=== PATIENT | female | born 1945 | race American Indian/Alaskan Native ===

== ENCOUNTER 2018-05-13 19:23 | Emergency (ER) | payer MEDICARE, MEDICAID ==
[2018-05-13 19:41] VITALS: TEMP 98.6
--- NOTE | 2018-05-13 19:51 | ED PDOC ---
Arrival/HPI - General Chief Complaint: Psychiatric Evaluation Time Seen by Provider: 05/13/18 19:49 Historian: Patient, [facility] EM Caveat: Dementia - History of Present Illness Narrative History of Present Illness (Text): 05/13/18 19:50 Patient is a 73 year old female whose past medical history includes UTI, and dementia with behavioral disturbances, who was brought to the Emergency department by her long term for hallucination, paranoia, and agitation. Patient currently denies any suicidal ideation, but jokingly noted that she wants kill her ex . She denies any audio or visual hallucination, and has no physical complaints. Patient states that she doesn't know why she was brought to the Emergency department. HPI and ROS limited due to patient's dementia. Context: Home (group home) Past Medical History - Provider Review Nursing Documentation Reviewed: Yes - Cardiac Hx Cardiac Disorders: No - Pulmonary Hx Respiratory Disorders: No - Neurological Hx Neurological Disorder: Yes Hx Dementia: Yes - HEENT Hx HEENT Disorder: No - Renal Hx Renal Disorder: No - Endocrine/Metabolic Hx Endocrine Disorders: No - Hematological/Oncological Hx Blood Disorders: No - Integumentary Hx Dermatological Disorder: No - Musculoskeletal/Rheumatological Hx Musculoskeletal Disorders: Yes Hx Unsteady Gait: Yes - Gastrointestinal Hx Gastrointestinal Disorders: No - Genitourinary/Gynecological Hx Genitourinary Disorders: Yes Hx Incontinence: Yes Hx Urinary Tract Infection: Yes - Psychiatric Hx Psychophysiologic Disorder: Yes Hx Substance Use: No Other/Comment: BEHAVIORAL DISTURBANCE Family/Social History - Physician Review Nursing Documentation Reviewed: Yes Family/Social History: No Known Family HX Smoking Status: Unknown If Ever Smoked Hx Alcohol Use: No Hx Substance Use: No Allergies/Home Meds Allergies/Adverse Reactions: Allergies Penicillins Allergy (Verified 05/13/18 19:29) SHORTNESS OF BREATH Home Medications: Home Meds Medication Instructions Recorded Confirmed Acetaminophen [Tylenol 325mg tab] 650 mg PO Q4 PRN 05/13/18 05/13/18 Magnesium Hydroxide [Milk Of 30 ml PO PRN PRN 05/13/18 05/13/18 Magnesia] Review of Systems - Review of Systems Systems not reviewed;Unavailable: Dementia Psychiatric: absent: Suicidal Ideation, Other (patient denies auditory or visual hallucination.) Physical Exam Vital Signs Reviewed: Yes Vital Signs Temp Pulse Resp BP Pulse Ox 05/13/18 19:31 98.6 F 86 16 121/76 100 Temperature: Afebrile Blood Pressure: Normal Pulse: Regular Respiratory Rate: Normal Appearance: Positive for: Well-Appearing - Systems Exam Head: Present: Atraumatic, Normocephalic Pupils: Present: PERRL Extroacular Muscles: Present: EOMI Conjunctiva: Present: Normal Mouth: Present: Moist Mucous Membranes Neck: Present: Normal Range of Motion Respiratory/Chest: Present: Clear to Auscultation, Good Air Exchange. No: Respiratory Distress, Accessory Muscle Use Cardiovascular: Present: Regular Rate and Rhythm, Murmurs (systolic murmur) Abdomen: No: Tenderness, Distention, Peritoneal Signs Back: Present: Normal Inspection Upper Extremity: Present: Normal Inspection. No: Cyanosis, Edema Lower Extremity: Present: Normal Inspection. No: Edema Neurological: Present: GCS=15, CN II-XII Intact, Speech Normal Skin: Present: Warm, Dry, Normal Color. No: Rashes Psychiatric: Present: Alert, Other (tangential thoughts and focus. ). No: Suicidal Ideation Medical Decision Making ED Course and Treatment: 05/13/18 19:50 Impression: 73 year old female who was brought into the Emergency department from the long term for hallucination, paranoia, and agitation. Plan: -- EKG -- labs -- Blood work -- AES crisis evaluation -- Urinalysis -- Reassess and disposition Prior Visits: Notes and results from previous visits were reviewed. Progress Notes: 05/13/18 20:32 [facility] called and stated they will come in to evaluate patient pending medical clearance. 05/13/18 21:09 PES worker discussed case with Dr. Melissa, and states patient can be discharged home. Patient does not live in long term, but goes there for rehab, lives at home with son. PES worker also spoke to the patient's son, who is her POA, and says he is fine with her to come home, and will bring her clothes and come get her. 05/13/18 21:10 EKG: Ordered, reviewed, and independently interpreted the EKG. Rate : 83 BPM Rhythm : NSR Interpretation : No ST-segment elevations or depressions, nonspecific T wave changes, normal intervals. 05/13/18 21:[address] Orr and he is accepting patient. - Scribe Statement The provider has reviewed the documentation as recorded by the Nuzhatibe Chay Reidjaeanna Provider Scribe Attestation: All medical record entries made by the Nuzhatibe were at my direction and personally dictated by me. I have reviewed the chart and agree that the record accurately reflects my personal performance of the history, physical exam, me dical decision making, and the department course for this patient. I have also personally directed, reviewed, and agree with the discharge instructions and disposition. Disposition/Present on Arrival - Present on Arrival History of DVT/PE: No History of Uncontrolled Diabetes: No Urinary Catheter: No History of Decub. Ulcer: No History Surgical Site Infection Following: None - Disposition Have Diagnosis and Disposition been Completed?: Yes Diagnosis: Dementia, Hypokalemia, Hyperglycemia Disposition: HOME/ ROUTINE Disposition Time: 21:05 Patient Plan: Discharge Patient Problems: Current Active Problems Problem Status Onset Dementia Acute Hyperglycemia Acute Hypokalemia Acute Condition: STABLE Discharge Instructions (ExitCare): Dementia (Including Alzheimer Disease), Hyperglycemia, Adult (DC) Referrals: Josh Reveles, [Primary Care Provider] - Follow up with primary Forms: [place] ([place]ian)
[2018-05-13 20:38] LABS: ACETAMINOPHEN < 10.0 ug/ml (10.0-20.0); SALICYLATE < 1 mg/dL (2.0-20.0)
[2018-05-13 20:42] LABS: BASO # 0.02 K/mm3 (0.0-2.0); BASO % 0.3 % (0.0-3.0); EOS # 0.2 (0.0-0.7); EOS % 2.8 % (1.5-5.0); GRAN # 4.87 (1.4-6.5); GRAN % 62.9 % (50.0-68.0); HEMOGLOBIN 11.5 g/dL (12.0-16.0); LYMPH # 2.1 (1.2-3.4); LYMPH % 26.5 % (22.0-35.0); MEAN CELL VOLUME 89.3 fl (80.0-105.0); MEAN CORPUSCULAR HEMOGLOBIN 27.9 pg (25.0-35.0); MEAN CORPUSCULAR HGB CONC 31.3 g/dl (31.0-37.0); MEAN PLATELET VOLUME 9.8 fl (7.0-11.0); MONO # 0.6 (0.1-0.6); MONO % 7.5 % (1.0-6.0); RBC 4.12 10^6/uL (3.5-6.1); RED CELL DISTRIBUTION WIDTH 13.7 % (11.5-14.5); WHITE BLOOD COUNT 7.7 10^3/ul (4.5-11.0)
[2018-05-13 20:54] LABS: ALB/GLOB RATIO 1.4 (1.1-1.8); ALBUMIN 3.5 g/dL (3.0-4.8); ALT/SGPT 18 U/L (7-56); AST/SGOT 17 U/L (14-36); BLOOD UREA NITROGEN 22 mg/dL (7-21); CALCIUM 9.9 mg/dL (8.4-10.5); GFR NON-AFRICAN AMERICAN > 60
[2018-05-13] MEDS: Potassium Chloride 20 mEq ER Tab PO STA ×2 (21:58→22:45)
[2018-05-13 22:54] VITALS: BP 122/78; PULSE 90; RESP 18; O2SAT 99
--- NOTE | 2018-05-14 09:20 | CARD ---
APPROVED REPORT Date of service: 05/13/2018 EKG Measurement Heart [id number] [id number] <Conclusion> Normal sinus rhythm Moderate voltage criteria for LVH, may be normal variant Borderline ECG
== END 2018-05-13 22:53 | disposition home or self-care (01) ==
LOC: ED 19:23
DX: F03.90 Unspecified dementia, unspecified severity, without behavioral disturbance, psychotic disturbance, mood disturbance, and anxiety (principal); R73.9 Hyperglycemia, unspecified; E87.6 Hypokalemia
CPT/HCPCS: 80053; 83735; 85025; 90791; 93005; 99282; G0480

== ENCOUNTER 2018-09-24 02:01 | Inpatient (IN) | payer MEDICARE, MEDICAID ==
[2018-09-24 02:08] VITALS: BMI 31.3
--- NOTE | 2018-09-24 02:28 | ED PDOC ---
Arrival/HPI - General Chief Complaint: Weakness/Neurological Deficit Time Seen by Provider: 09/24/18 02:13 Historian: Patient - History of Present Illness Narrative History of Present Illness (Text): 09/24/18 02:25 73 year old female, whose past medical history includes dementia, presented to the emergency department by EMS accompanied by son, for evaluation of generalized weakness. Patient's son also informs she has been having increasing confusion. Patient states she has been unsteady on feet with difficulty ambulating. Patient denies any history of fever, chest pain, or shortness of breath. Patient appears animated at times raising her voice to her son and stating that she feels fine. Patient denies any headache, dizziness, abdominal pain, nausea, vomiting, diarrhea, back pain, neck pain, or any other complaint. Time/Duration: Prior to Arrival Symptom Onset: Gradual Symptom Course: Unchanged Activities at Onset: Light Context: Home Past Medical History - Provider Review Nursing Documentation Reviewed: Yes - Cardiac Hx Cardiac Disorders: No - Pulmonary Hx Respiratory Disorders: No - Neurological Hx Neurological Disorder: Yes Hx Dementia: Yes - HEENT Hx HEENT Disorder: No - Renal Hx Renal Disorder: No - Endocrine/Metabolic Hx Endocrine Disorders: No - Hematological/Oncological Hx Blood Disorders: No - Integumentary Hx Dermatological Disorder: No - Musculoskeletal/Rheumatological Hx Musculoskeletal Disorders: Yes Hx Unsteady Gait: Yes - Gastrointestinal Hx Gastrointestinal Disorders: No - Genitourinary/Gynecological Hx Genitourinary Disorders: Yes Hx Incontinence: Yes Hx Urinary Tract Infection: Yes - Psychiatric Hx Psychophysiologic Disorder: Yes Hx Substance Use: No Other/Comment: BEHAVIORAL DISTURBANCE Family/Social History - Physician Review Nursing Documentation Reviewed: Yes Family/Social History: No Known Family HX Smoking Status: Unknown If Ever Smoked Hx Alcohol Use: No Hx Substance Use: No Allergies/Home Meds Allergies/Adverse Reactions: Allergies Penicillins Allergy (Verified 09/24/18 02:09) SHORTNESS OF BREATH Home Medications: Home Meds Medication Instructions Recorded Confirmed No Known Home Med 09/24/18 09/24/18 Review of Systems - Physician Review All systems were reviewed & negative as marked: Yes - Review of Systems Constitutional: Fatigue. absent: Fevers, Night Sweats Respiratory: absent: SOB Cardiovascular: absent: Chest Pain Gastrointestinal: absent: Abdominal Pain, Diarrhea, Nausea, Vomiting Musculoskeletal: absent: Back Pain, Neck Pain Neurological: absent: Headache, Dizziness Physical Exam Vital Signs Reviewed: Yes Vital Signs Temp Pulse Resp BP 09/24/18 02:21 97.9 F 106 H 18 134/74 Temperature: Afebrile Blood Pressure: Normal Pulse: Tachycardic Respiratory Rate: Normal Appearance: Positive for: Well-Appearing, Non-Toxic, Comfortable Pain Distress: None - Systems Exam Head: Present: Atraumatic, Normocephalic Pupils: Present: PERRL Extroacular Muscles: Present: EOMI Conjunctiva: Present: Normal Ears: Present: NORMAL TM Mouth: Present: Moist Mucous Membranes Neck: Present: Normal Range of Motion Respiratory/Chest: Present: Clear to Auscultation, Good Air Exchange. No: Respiratory Distress, Accessory Muscle Use Cardiovascular: Present: Regular Rate and Rhythm, Normal S1, S2. No: Murmurs Abdomen: No: Tenderness, Distention, Peritoneal Signs Back: Present: Normal Inspection Upper Extremity: Present: Normal Inspection. No: Cyanosis, Edema Lower Extremity: Present: Normal Inspection. No: Edema Neurological: Present: GCS=15, CN II-XII Intact, Speech Normal, Motor Func Grossly Intact, Normal Sensory Function Skin: Present: Warm, Dry, Normal Color. No: Rashes Psychiatric: Present: Alert, Other (oriented to person/place) Medical Decision Making ED Course and Treatment: 09/24/18 02:30 Impression: 73 year old female presents with generalized weakness Plan: -- CT Head -- EKG -- CMP -- CBC -- Chest X-ray -- Urinalysis -- Reassess and disposition Prior Visits: Notes and results from previous visits were reviewed. Progress Notes: 09/24/18 02:45 EKG reviewed by me shows: NSR @95 Non specific STT changes 09/24/18 03:00 Chest X-ray reviewed by me, shows: No acute process 09/24/18 04:20 CT scan of the head. CLINICAL HISTORY: Altered mental status. TECHNIQUE: Multiple axial CT images were obtained through the brain without IV contrast material. Comparison: 04/16/2018. COMMENTS: There is normal configuration of sella turcica. There are no intra or extra- axial collections. There is no mass effect or midline shift. There is no evidence of hematoma formation. No hydrocephalus is present. The ventricles are symmetrical. No abnormal calcifications are present. There is diffuse age-appropriate cerebellar and cerebral atrophy with proportionally dilated ventricles and cortical sulci. There are bilateral periventricular and subcortical white matter hypolucencies compatible with mild chronic microvascular disease. Otherwise, no significant focal abnormalities are seen either in the posterior fossa or supratentorial compartment. Mild chronic mucosal inflammatory changes of the ethmoid air cells. IMPRESSION: 1. Age-appropriate cerebellar and cerebral atrophy. 2. Mild chronic microvascular disease. 3. No evidence of acute intracranial pathology. 09/24/18 05:56 Dr Reveles accepts patient to his service. Would like Dr Peterson on consult - RAD Interpretation Radiology Orders: 09/24/18 02:23 HEAD W/O CONTRAST [CT] Stat 09/24/18 02:24 CHEST PORTABLE [RAD] Stat - Scribe Statement The provider has reviewed the documentation as recorded by the Scribe Brennon Arevalo Provider Scribe Attestation: All medical record entries made by the Scribe were at my direction and perso ashwini dictated by me. I have reviewed the chart and agree that the record accurately reflects my personal performance of the history, physical exam, medical decision making, and the department course for this patient. I have also personally directed, reviewed, and agree with the discharge instructions and disposition. Disposition/Present on Arrival - Present on Arrival Any Indicators Present on Arrival: No History of DVT/PE: No History of Uncontrolled Diabetes: No Urinary Catheter: No History of Decub. Ulcer: No History Surgical Site Infection Following: None - Disposition Have Diagnosis and Disposition been Completed?: Yes Diagnosis: Altered mental status, Dehydration, Unsteady gait Disposition: HOSPITALIZED Disposition Time: 05:58 Patient Problems: Current Active Problems Problem Status Onset Altered mental status Acute Dehydration Acute Unsteady gait Acute Condition: STABLE
[2018-09-24 03:08] LABS: HEMOGLOBIN 11.2 g/dL (12.0-16.0); MEAN CELL VOLUME 89.7 fl (80.0-105.0); MEAN CORPUSCULAR HEMOGLOBIN 28.2 pg (25.0-35.0); MEAN CORPUSCULAR HGB CONC 31.5 g/dl (31.0-37.0); RBC 3.97 10^6/uL (3.5-6.1); RED CELL DISTRIBUTION WIDTH 13.2 % (11.5-14.5); WHITE BLOOD COUNT 11.4 10^3/uL (4.5-11.0)
[2018-09-24 03:10] LABS: ALBUMIN 3.4 g/dL (3.0-4.8); ALT/SGPT 22 U/L (7-56); AST/SGOT 31 U/L (14-36); BLOOD UREA NITROGEN 41 mg/dL (7-21); CALCIUM 10.4 mg/dL (8.4-10.5); GFR NON-AFRICAN AMERICAN 44
[2018-09-24 03:11] LABS: INR 1.3; PARTIAL THROMBOPLASTIN TIME 25.9 Seconds (26.9-38.3); PROTHROMBIN TIME 14.4 SECONDS (9.4-12.5)
[2018-09-24 03:21] LABS: TROPONIN I < 0.01 ng/mL
[2018-09-24 03:28] LABS: CK MB% 1.8 % (2.5-3.0); CK-MB 5.3 ng/mL (0.0-3.6)
[2018-09-24] MEDS ORDERED: Potassium Chloride 20 mEq ER Tab PO STA (04:32)
[2018-09-24] MEDS ORDERED: Sodium Chloride 0.9% 1,000 ML IV SCH (04:45)
[2018-09-24 05:19] LABS: URINE BILIRUBIN NEGATIVE (NEGATIVE); URINE BLOOD NEGATIVE (NEGATIVE); URINE GLUCOSE (UA) NEGATIVE (NEGATIVE); URINE LEUKOCYTE ESTERASE SMALL Leu/uL (NEGATIVE); URINE PROTEIN NEGATIVE mg/dL (<30 mg/dL)
[2018-09-24 05:25] LABS: URINE APPEARANCE CLEAR (CLEAR); URINE COLOR YELLOW (YELLOW)
[2018-09-24 05:37] LABS: URINE BACTERIA MANY /hpf; URINE EPITHELIAL CELLS 0 - 2 /hpf (0-5); URINE RBC 0 - 2 /hpf (0-2)
--- NOTE | 2018-09-24 08:50 | CT ---
Date of service: 09/24/2018 PROCEDURE: CT HEAD WITHOUT CONTRAST. HISTORY: ams COMPARISON: None available. TECHNIQUE: Axial computed tomography images were obtained through the head/brain without intravenous contrast. Radiation dose: Total exam DLP = 994.46 mGy-cm. This CT exam was performed using one or more of the following dose reduction techniques: Automated exposure control, adjustment of the mA and/or kV according to patient size, and/or use of iterative reconstruction technique. FINDINGS: HEMORRHAGE: No intracranial hemorrhage. BRAIN: Ramirez-white matter differentiation is preserved. There is no mass, mass effect or abnormal extra-axial fluid collection. There is no territorial infarction. The midline sagittal structures are normal. VENTRICLES: There is mild age-related global parenchymal volume loss and proportionate enlargement of the ventricles and cortical sulci with parietal lobe predominance. CALVARIUM: There is no calvarial fracture or extracranial soft tissue swelling. There is hyperostosis frontalis interna. PARANASAL SINUSES: Predominantly clear. MASTOID AIR CELLS: Predominantly clear. OTHER FINDINGS: None. IMPRESSION: No acute intracranial abnormality. Mild age-related global parenchymal loss with parietal lobe predominance. A preliminary report was provided by [employer].
--- NOTE | 2018-09-24 11:38 | CARD ---
APPROVED REPORT Date of service: 09/24/2018 EKG Measurement Heart [id number] [id number] <Conclusion> Normal sinus rhythm Possible Left atrial enlargement Borderline ECG
[2018-09-24] MEDS: Aztreonam 1 Gm in NS 100mL 100 ML IVPB SCH ×3 (11:46→21:36)
[2018-09-24] MEDS: Sodium Chloride 0.9% 1,000 ML IV SCH (11:46)
[2018-09-24] MEDS ORDERED: Pneumococcal 23-Valent Vaccine IM ONE (12:52)
[2018-09-24] MEDS ORDERED: Influenza Vaccine 60 mcg/0.5 mL SYR (4YR UP) IM ONE (12:52)
--- NOTE | 2018-09-24 13:35 | RAD ---
Date of service: 09/24/2018 PROCEDURE: CHEST RADIOGRAPH, 1 VIEW HISTORY: weakness COMPARISON: 04/16/2018 FINDINGS: LUNGS: Clear. PLEURA: Elevated right hemidiaphragm. No pleural effusion or pneumothorax. CARDIOVASCULAR: No aortic atherosclerotic calcification present. Normal. OSSEOUS STRUCTURES: No significant abnormalities. VISUALIZED UPPER ABDOMEN: Normal. OTHER FINDINGS: None. IMPRESSION: No active disease.
--- NOTE | 2018-09-24 15:21 | CP.PCM.CON ---
History of Present Illness - History of Present Illness History of Present Illness: 73 year old female with PMH of dementia, urinary incontinence, history of UTI, obesity with BMI 31 was brought in to [facility] by family because of generalized weakness and increasing confusion. The patient was apparently noted to be unsteady on her feet. There was no note of falls, no diarrhea, no cough, patient not in respiratory distress in the ED, no vomiting noted. Currently the patient is lying in bed, answers simple questions, is not in distress, denies abdominal pain or chest pain but full review of systems is difficult to obtain because of the patient's dementia. In the ED, urinalysis was showing many bacteria and Infectious Diseases consult is requested to further evaluate and manage. Review of Systems - Review of Systems All systems: reviewed and no additional remarkable complaints except (as per HPI) Past Patient History - Past Social History Smoking Status: Unknown If Ever Smoked - CARDIAC Hx Cardiac Disorders: No - PULMONARY Hx Respiratory Disorders: No - NEUROLOGICAL Hx Neurological Disorder: Yes Hx Dementia: Yes - HEENT Hx HEENT Problems: No - RENAL Other/Comment: incontinence, UTI - ENDOCRINE/METABOLIC Hx Endocrine Disorders: No - HEMATOLOGICAL/ONCOLOGICAL Hx Blood Disorders: No - INTEGUMENTARY Hx Dermatological Problems: No - MUSCULOSKELETAL/RHEUMATOLOGICAL Hx Unsteady Gait: Yes - GASTROINTESTINAL Hx Gastrointestinal Disorders: No - GENITOURINARY/GYNECOLOGICAL Hx Incontinence: Yes Hx Urinary Tract Infection: Yes - PSYCHIATRIC Hx Psychophysiologic Disorder: No - SURGICAL HISTORY Hx Surgeries: No Meds Allergies/Adverse Reactions: Allergies Allergy/AdvReac Type Severity Reaction Status Date / Time Penicillins Allergy SHORTNESS Verified 09/24/18 02:09 OF BREATH - Medications Medications: Current Medications Sodium Chloride (Sodium Chloride 0.9%) 1,000 mls @ 60 mls/hr IV .[id number] PANCHO Physical Exam - Constitutional Appears: Non-toxic, Chronically Ill - Head Exam Head Exam: NORMAL INSPECTION - ENT Exam ENT Exam: Mucous Membranes Moist - Neck Exam Neck exam: Negative for: Lymphadenopathy, Meningismus - Respiratory Exam Respiratory Exam: Decreased Breath Sounds - Cardiovascular Exam Cardiovascular Exam: +S1, +S2 - GI/Abdominal Exam GI & Abdominal Exam: Soft. absent: Tenderness Results - Vital Signs Recent Vital Signs: Last Vital Signs Temp 97.9 F 09/24/18 02:21 Pulse 91 H 09/24/18 06:53 Resp 18 09/24/18 06:53 BP 124/72 09/24/18 06:53 Pulse Ox 100 09/24/18 06:53 - Labs Result Diagrams: 09/24/18 02:45 09/24/18 02:45 Labs: Laboratory Results - last 24 hr 09/24/18 09/24/18 09/24/18 02:45 02:45 02:45 WBC 11.4 H RBC 3.97 Hgb 11.2 L Hct 35.6 L MCV 89.7 MCH 28.2 MCHC 31.5 RDW 13.2 Plt Count 380 MPV 10.0 PT 14.4 H INR 1.30 APTT 25.9 L Sodium 138 Potassium 3.3 L Chloride 104 Carbon Dioxide 28 Anion Gap 9 L BUN 41 H Creatinine 1.2 Est GFR ( Amer) 53 Est GFR (Non-Af Amer) 44 Random Glucose 129 H Calcium 10.4 Total Bilirubin 0.9 AST 31 ALT 22 Alkaline Phosphatase 74 Lactate Dehydrogenase 604 Total Creatine Kinase 291 H CK-MB (CK-2) 5.3 H CK-MB (CK-2) % 1.8 L Troponin I < 0.01 Total Protein 6.6 Albumin 3.4 Globulin 3.3 Albumin/Globulin Ratio 1.0 L Urine Color Urine Appearance Urine pH Ur Specific [place] Urine Protein Urine Glucose (UA) Urine Ketones Urine Blood Urine Nitrate Urine Bilirubin Urine Urobilinogen Ur Leukocyte Esterase Urine RBC Urine WBC Ur Epithelial Cells Urine Bacteria 09/24/18 04:59 WBC RBC Hgb Hct MCV MCH MCHC RDW Plt Count MPV PT INR APTT Sodium Potassium Chloride Carbon Dioxide Anion Gap BUN Creatinine Est GFR ( Amer) Est GFR (Non-Af Amer) Random Glucose Calcium Total Bilirubin AST ALT Alkaline Phosphatase Lactate Dehydrogenase Total Creatine Kinase CK-MB (CK-2) CK-MB (CK-2) % Troponin I Total Protein Albumin Globulin Albumin/Globulin Ratio Urine Color Yellow Urine Appearance Clear Urine pH 6.0 Ur Specific [place] 1.025 Urine Protein Negative Urine Glucose (UA) Negative Urine Ketones Trace H Urine Blood Negative Urine Nitrate Negative Urine Bilirubin Negative Urine Urobilinogen 1.0 H Ur Leukocyte Esterase Small H Urine RBC 0 - 2 Urine WBC 1 - 3 Ur Epithelial Cells 0 - 2 Urine Bacteria Many Assessment & Plan - Assessment and Plan (Free Text) Plan: Assessment systemic inflammatory response syndrome, consider sepsis due to UTI dementia urinary incontinence history of UTI obesity with BMI 31 Plan started Aztreonam pending blood and urine cx follow up Neurology evaluation CXR does not show infiltrates will monitor clinically discussed with Dr. Reveles
--- NOTE | 2018-09-24 18:01 | CON ---
DATE: 09/24/2018 NEUROLOGY CONSULT CHIEF COMPLAINT: Change in mental status. HISTORY OF PRESENT ILLNESS: A 73-year-old woman with past medical history of dementia, urinary incontinence, history of UTI, obesity with BMI of 31, was brought in by family members to [facility] for generalized weakness and increasing confusion. The patient was apparently noted to be on her feet. There is no note of any falls, no diarrhea, no cough. The patient was not in any respiratory distress. Apparently, the patient is lying in bed, answers simple questions, not in any acute distress. Denies any focal weakness of the extremities. She is very deconditioned. CAT scan of the head shows like atrophy and chronic ischemic changes. No acute abnormalities. She has severe cognitive impairment based on neuro exam and she is very deconditioned. PAST MEDICAL HISTORY: As above. FAMILY HISTORY: Noncontributory. SOCIAL HISTORY: No illicit drug use, smoking or EtOH abuse. REVIEW OF SYSTEMS: A 14-point review of systems is as per HPI. MEDICATIONS: Reviewed by nurse's reconciliation sheet. ALLERGIES: ALLERGY TO PENICILLIN. PHYSICAL EXAMINATION GENERAL: The patient is seen up in bed, lethargic, in no acute distress. VITAL SIGNS: Temperature 97.9, pulse rate of 91, respiratory rate of 18, blood pressure 124/72, pulse ox of 100%. HEENT: Atraumatic, normocephalic. PERRLA. Extraocular muscles intact. NECK: Supple. No adenopathy noted. LUNGS: Decreased breath sounds bilaterally. No adventitious sounds. HEART: S1 and S2. Normal rate and rhythm. No murmurs, rubs, or gallops. ABDOMEN: Soft, nontender, nondistended. Bowel sounds present. EXTREMITIES: No clubbing, no cyanosis. Peripheral pulses are 2+ felt bilaterally. NEUROLOGIC: The patient is alert and oriented to person and place, not oriented to month or year. Poor attention span. Slow thought process. Recall after 5 minutes is 0/3. Speech is fluent without any errors. No aphasia noted. Cranial nerves II through XII are intact. Motor: Slightly increased tone throughout. Moves all extremities equally. Very deconditioned. Has generalized atrophy of the upper and lower extremity muscles. Sensory: Decreased light touch and pinprick up to the calves bilaterally. Decreased vibration at the toes. DTRs are 2+ throughout and 1 at both knees and ankles. Coordination: Gait is deferred for now. LABORATORY DATA: Sodium is 138, potassium 3.3, chloride 104, carbon dioxide of 28, BUN of 41, creatinine of 1.2, random glucose of 129. IMPRESSION 1. Altered mental status is more of like underlying deconditioned state, possibly with underlying moderate to severe cognitive impairment superimposed on deconditioned state and has systemic inflammatory response syndrome, possibly status post some underlying urinary tract infection. At this time, we recommend to continue Azactam for possible urinary tract infection. 2. Thiamine 100 mg p.o. daily for activity. 3. IV fluids for gentle hydration. 4. Delirium precautions. 5. PT/OT and recommend subacute rehab placement. Thank you for this consult. Agus Peterson MD
--- NOTE | 2018-09-24 20:35 | HP ---
DATE OF EXAM: 09/24/2018 HISTORY OF PRESENT ILLNESS: She is resting in bed in room 372, I was called to see her. She is a 73-year-old female, presents to the emergency room by his son with generalized weakness, also increasing confusion, unsteady on her feet, difficulty ambulating. Otherwise, she is confused and asking questions well. The son said at times, she does raise her voice at times. She has dementia, unsteady gait, incontinence of urine. She has history of urinary tract infections, behavioral disturbance, not really. FAMILY HISTORY: No known family history. SOCIAL HISTORY: No smoking. No alcohol. No drugs. ALLERGIES: SHE IS ALLERGIC TO PENICILLINS. MEDICATIONS: None. REVIEW OF SYSTEMS: No acute vision or hearing changes, difficulty to get a really good review of systems from her. No shortness of breath or chest pain. No abdominal pain, nausea, or vomiting. No back pain. No headache. PHYSICAL EXAMINATION: VITAL SIGNS: Temperature 97.9, pulse 106, respiratory rate 18, and blood pressure 134/74. GENERAL: Well appearing, nontoxic, comfortable. She tells me she wants to take a nap. Alert and oriented x1 that I could tell. HEENT: Head is atraumatic and normocephalic. Throat is moist. NECK: Supple. Thyroid midline. No palpable appreciable lymphadenopathy. HEART: Regular rate. LUNGS: Decreased breath sounds, but clear. ABDOMEN: Soft and nontender. EXTREMITIES: No edema. SKIN: For I could tell is intact. EXTREMITIES: No edema. LABORATORY DATA: She had tests done. She has a urine which showed many bacteria, small leukocytes. Sodium 138, potassium 3.3 and I gave her potassium, BUN 41, creatinine 1.2 and she is on IV fluids, GFR is 44, sugar is 129 we will keep an eye on her sugar, and calcium 10.4. Total bili is 0.9, AST is 31, ALT is 22, and alk phos 74. Total creatine kinase is 291. Troponin I is less than 0.01. Total protein 6.6. INR is 1.31. White count 11.4 little elevated, hemoglobin 11.2, hematocrit 35.6 and platelets 380. IMPRESSION AND PLAN: She will have consults with Neurology and Infectious Disease, placed on IV antibiotics and IV fluids and physical therapy. The CAT scan of the head did not show anything acute. The chest x-ray and EKG are pending. She is here for altered mental status, weakness, possible urinary tract infection with history of dementia, with renal insufficiency. Josh Reveles DO MTDRohith
[2018-09-25] MEDS: Aztreonam 1 Gm in NS 100mL 100 ML IVPB SCH ×3 (05:33→21:20)
[2018-09-25] MEDS: Sodium Chloride 0.9% 1,000 ML IV SCH (05:33)
[2018-09-25 06:42] LABS: HEMOGLOBIN 10.4 g/dL (12.0-16.0); MEAN CELL VOLUME 89.8 fl (80.0-105.0); MEAN CORPUSCULAR HEMOGLOBIN 27.3 pg (25.0-35.0); MEAN CORPUSCULAR HGB CONC 30.4 g/dl (31.0-37.0); MEAN PLATELET VOLUME 9.6 fl (7.0-11.0); RBC 3.81 10^6/uL (3.5-6.1); RED CELL DISTRIBUTION WIDTH 13.1 % (11.5-14.5); WHITE BLOOD COUNT 9.9 10^3/uL (4.5-11.0)
[2018-09-25 07:22] LABS: ALBUMIN 2.9 g/dL (3.0-4.8); ALT/SGPT 31 U/L (7-56); AST/SGOT 46 U/L (14-36); BLOOD UREA NITROGEN 16 mg/dL (7-21); CALCIUM 9.7 mg/dL (8.4-10.5); GFR NON-AFRICAN AMERICAN > 60
--- NOTE | 2018-09-25 11:51 | PN ---
DATE: 09/25/2018 SUBJECTIVE: She is alert, talking more today, quite confused, tells me she is hungry, has not gotten out of bed. Needs physical therapy, at least she needs KENNY. She also has UTI and is on Azactam by Infectious Disease, potassium replacement. IV fluids and thiamine. PHYSICAL EXAMINATION: GENERAL: She is not in any pain. VITAL SIGNS: She has 97.8 temp, 85 pulse, 135/66 blood pressure, 19 respiratory rate, 99% O2 on room air. LABORATORY DATA: She has a 9.9 white count, better; 10.4 hemoglobin; 34.2 hematocrit with 364 platelets. She has 142 sodium; potassium 3, I am replacing the potassium; BUN 16; creatinine 0.6; GFR is greater than 60; sugar is 96; calcium is 9.7. Total bili is 0.5. AST is 46, ALT is 31, alk phos is 60, and total protein is 5.8. Urine with many bacteria. ASSESSMENT AND PLAN: She is being seen by Neurology and Infectious Disease. She has altered mental status, deconditioned. She will need KENNY; systemic inflammatory response syndrome, thiamine, IV antibiotics. I will change her to an inpatient, see overnight and then subacute rehab. Hopefully, she will continue to improve. Josh Reveles DO
--- NOTE | 2018-09-25 13:48 | CP.PCM.PCO ---
Physician Communication Note - Physician Communication Note Physician Communication Note: PT rec. KENNY for deconditioning
--- NOTE | 2018-09-25 14:34 | CP.PCM.PN ---
Subjective - Date & Time of Evaluation Date of Evaluation: 09/25/18 Time of Evaluation: 11:00 - Subjective Subjective: More awake today, no fevers. Objective - Vital Signs/Intake and Output Vital Signs (last 24 hours): Temp Pulse Resp BP Pulse Ox 97.9 F 91 H 18 124/72 100 09/24/18 02:21 09/24/18 06:53 09/24/18 08:13 09/24/18 06:53 09/24/18 06:53 - Medications Medications: Current Medications Sodium Chloride (Sodium Chloride 0.9%) 1,000 mls @ 60 mls/hr IV .[id number] [facility] Last Admin: 09/24/18 11:46 Dose: 60 mls/hr Aztreonam (Azactam 1 Gm) 100 mls @ 100 mls/hr IVPB Q8 [facility]; Protocol Stop: 10/01/18 09:31 Last Admin: 09/24/18 15:04 Dose: 100 mls/hr - Labs Labs: 09/24/18 02:45 09/24/18 02:45 PT 14.4 SECONDS (9.4-12.5) H 09/24/18 02:45 INR 1.30 09/24/18 02:45 APTT 25.9 Seconds (26.9-38.3) L 09/24/18 02:45 - Constitutional Appears: Chronically Ill - Head Exam Head Exam: NORMAL INSPECTION - Respiratory Exam Respiratory Exam: Decreased Breath Sounds - Cardiovascular Exam Cardiovascular Exam: +S1, +S2 - GI/Abdominal Exam GI & Abdominal Exam: Soft. absent: Tenderness Assessment and Plan - Assessment and Plan (Free Text) Plan: Assessment systemic inflammatory response syndrome, R/O due to UTI dementia urinary incontinence history of UTI obesity with BMI 31 Plan continue Aztreonam day 2 and follow up final blood and urine cx results reviewed Neurology evaluation CXR does not show infiltrates will continue to monitor clinically discussed with Dr. Reveles
--- NOTE | 2018-09-25 16:04 | CP.PCM.PCO ---
Physician Communication Note - Physician Communication Note Physician Communication Note: pt lives w.son, advised can no longer care for patient at home,PT rec KENNY
--- NOTE | 2018-09-25 16:39 | CP.PCM.APN ---
Subjective - Date & Time of Evaluation Date of Evaluation: 09/25/18 Time of Evaluation: 02:00 - Subjective Subjective: Pt. seen and examined at bedside, appears confused to place and time, in no acute distress. Objective - Vital Signs/Intake and Output Vital Signs (last 24 hours): Temp Pulse Resp BP Pulse Ox 97.6 F 74 17 149/71 93 L 09/25/18 06:00 09/25/18 06:00 09/25/18 06:00 09/25/18 06:00 09/25/18 06:00 Intake and Output: 09/25/18 09/25/18 06:59 18:59 Intake Total 970 Balance 970 - Medications Medications: Current Medications Sodium Chloride (Sodium Chloride 0.9%) 1,000 mls @ 60 mls/hr IV .[id number] [facility] Last Admin: 09/25/18 05:33 Dose: 60 mls/hr Aztreonam (Azactam 1 Gm) 100 mls @ 100 mls/hr IVPB Q8 [facility]; Protocol Stop: 10/01/18 09:31 Last Admin: 09/25/18 16:26 Dose: 100 mls/hr Thiamine HCl (Vitamin B1 Tab) 100 mg PO DAILY [facility] Last Admin: 09/25/18 09:31 Dose: 100 mg - Labs Labs: 09/25/18 06:00 09/25/18 06:00 PT 14.4 SECONDS (9.4-12.5) H 09/24/18 02:45 INR 1.30 09/24/18 02:45 APTT 25.9 Seconds (26.9-38.3) L 09/24/18 02:45 - Constitutional Appears: Well, Non-toxic - Head Exam Head Exam: NORMOCEPHALIC - Eye Exam Eye Exam: Normal appearance - Neck Exam Neck Exam: Full ROM - Respiratory Exam Respiratory Exam: Clear to Ausculation Bilateral - Cardiovascular Exam Cardiovascular Exam: REGULAR RHYTHM, +S1, +S2 - GI/Abdominal Exam GI & Abdominal Exam: Soft, Normal Bowel Sounds - Rectal Exam Rectal Exam: Deferred - Exam Exam: absent: Circumcision, NORMAL INSPECTION, Scrotal Swelling, Testicular Tenderness, Uretheral Discharge, Testicular Vertical Lie, Bladder Distension External exam: absent: Ecchymosis, Erythema, Lacerations, Lesions, NORMAL EXTERNAL EXAM, Swelling Speculum exam: absent: Cervical Discharge, Erythema, Foreign Body, Laceration, NORMAL SPECULUM EXAM, Tissue, Vaginal Bleeding, Vaginal Discharge Bimanual exam: absent: Adenexal Mass, Adnexal, Cervical Motion Tendernes, NORMAL BIMANUAL EXAM, Uterine Enlargement, Uterine Tenderness - Neurological Exam Neurological Exam: Alert, Awake - Psychiatric Exam Psychiatric exam: Normal Affect - Skin Skin Exam: Dry, Intact, Normal Color, Warm Assessment and Plan - Assessment and Plan (Free Text) Assessment: ITS Impressions Head CT 09/24/18 02:23 IMPRESSION: No acute intracranial abnormality. Mild age-related global parenchymal loss with parietal lobe predominance. A preliminary report was provided by [employer] [facility]. Chest X-Ray 09/24/18 02:24 IMPRESSION: No active disease. Microbiology 09/24/18 16:18 Blood-Venous Blood Culture - Preliminary NO GROWTH AFTER 24 HOURS 09/24/18 16:18 Blood-Venous Blood Culture - Preliminary NO GROWTH AFTER 24 HOURS 09/24/18 04:59 Urine,Clean Catch Urine Culture - Final No Growth (<1,000 CFU/ML) Penicillins Allergy (Verified 09/24/18 02:09) SHORTNESS OF BREATH Assessment: 73 year old female with PMH of dementia, urinary incontinence, history of UTI, obesity with BMI 31 was brought in to [facility] by family because of generalized weakness and increasing confusion. The patient was apparently noted to be unsteady on her feet, admitted for further eval and treatment. Plan: 1. Altered Mental Status Neuro rec. Physical therapy, for severe deconditioned state. urine cx and blood cx result pending, Antibx per I.D. 2. Deconditioned PT recs KENNY. 3. Dehydration cont. IVf, monitor bun/creatinine. Will continue to monitor clinical status. DW with consultants and PMD. CM/SW planning for KENNY/LTC?
[2018-09-25] MEDS ORDERED: Potassium Chloride 20 mEq/15 ml LIQ UD PO STA (17:11)
[2018-09-26] MEDS: Aztreonam 1 Gm in NS 100mL 100 ML IVPB SCH ×2 (05:40→14:00)
[2018-09-26] MEDS: Sodium Chloride 0.9% 1,000 ML IV SCH ×2 (05:41→12:34)
[2018-09-26 07:26] LABS: MEAN CELL VOLUME 89.1 fl (80.0-105.0); MEAN CORPUSCULAR HEMOGLOBIN 27.2 pg (25.0-35.0); MEAN CORPUSCULAR HGB CONC 30.6 g/dl (31.0-37.0); MEAN PLATELET VOLUME 9.6 fl (7.0-11.0); RBC 4.04 10^6/uL (3.5-6.1); RED CELL DISTRIBUTION WIDTH 12.8 % (11.5-14.5); WHITE BLOOD COUNT 11.5 10^3/uL (4.5-11.0)
[2018-09-26 07:41] LABS: ALBUMIN 3.1 g/dL (3.0-4.8); ALT/SGPT 32 U/L (7-56); AST/SGOT 24 U/L (14-36); BLOOD UREA NITROGEN 8 mg/dL (7-21); CALCIUM 9.4 mg/dL (8.4-10.5); GFR NON-AFRICAN AMERICAN > 60
--- NOTE | 2018-09-26 14:17 | PN ---
DATE: 09/26/2018 SUBJECTIVE: I saw her in bed, resting comfortably. She slept fairly well. She is hungry. She is pleasantly confused. I am hoping to get her out of bed to chair today, get physical therapy to walker. I believe she is to go to subacute rehab. PHYSICAL EXAMINATION: VITAL SIGNS: She has 97 temp, 77 pulse, 158/81 blood pressure, 20 respiratory rate, 99% O2 sat. HEENT: Head is atraumatic and normocephalic. HEART: Regular rate. LUNGS: Decreased breath sounds, but clear. ABDOMEN: Soft. EXTREMITIES: No edema. Little bit weak. She is on Azactam, IV fluids and vitamin B1. LABORATORY DATA: She has a 11.5 white count, 11 hemoglobin, 36 hematocrit with 371 platelets. She has 138 sodium, potassium 3.2, I replaced the potassium. BUN 8, creatinine 0.4, GFR is greater than 60, sugar is 89, calcium is 9.4. Total bili is 0.4. AST is 24, ALT is 32, alk phos is 53, and total protein is 6.2. Urine have many bacteria. ASSESSMENT AND PLAN: I am hoping to get her to subacute rehab. RECOMMENDATIONS: For subacute rehab and hopefully get her to [facility]. Hopefully that could be done tomorrow. We will continue aggressive treatment and care. Get her out of bed. Josh Reveles DO
--- NOTE | 2018-09-26 14:23 | CP.PCM.PN ---
Subjective - Date & Time of Evaluation Date of Evaluation: 09/26/18 Time of Evaluation: 10:30 - Subjective Subjective: Comfortable, no fevers, not in distress. Objective - Vital Signs/Intake and Output Vital Signs (last 24 hours): Temp Pulse Resp BP Pulse Ox 97.6 F 74 17 149/71 93 L 09/25/18 06:00 09/25/18 06:00 09/25/18 06:00 09/25/18 06:00 09/25/18 06:00 Intake and Output: 09/25/18 09/25/18 06:59 18:59 Intake Total 970 Balance 970 - Medications Medications: Current Medications Sodium Chloride (Sodium Chloride 0.9%) 1,000 mls @ 60 mls/hr IV .[id number] [facility] Last Admin: 09/25/18 05:33 Dose: 60 mls/hr Aztreonam (Azactam 1 Gm) 100 mls @ 100 mls/hr IVPB Q8 [facility]; Protocol Stop: 10/01/18 09:31 Last Admin: 09/25/18 05:33 Dose: 100 mls/hr Thiamine HCl (Vitamin B1 Tab) 100 mg PO DAILY [facility] Last Admin: 09/25/18 09:31 Dose: 100 mg - Labs Labs: 09/25/18 06:00 09/25/18 06:00 PT 14.4 SECONDS (9.4-12.5) H 09/24/18 02:45 INR 1.30 09/24/18 02:45 APTT 25.9 Seconds (26.9-38.3) L 09/24/18 02:45 - Constitutional Appears: Chronically Ill - Head Exam Head Exam: NORMAL INSPECTION - Neck Exam Neck Exam: absent: Meningismus - Respiratory Exam Respiratory Exam: Decreased Breath Sounds - Cardiovascular Exam Cardiovascular Exam: +S1, +S2 - GI/Abdominal Exam GI & Abdominal Exam: Soft. absent: Tenderness Assessment and Plan - Assessment and Plan (Free Text) Plan: Assessment systemic inflammatory response syndrome, probably due to dehydration, no evidence of UTI dementia urinary incontinence history of UTI obesity with BMI 31 stage 3 sacral ulcer Plan will d/c Aztreonam since blood and urine cx are negative reviewed Neurology evaluation CXR does not show infiltrates patient will need wound care for the sacral ulcer will continue to monitor clinically
--- NOTE | 2018-09-26 16:28 | CP.PCM.APN ---
Subjective - Date & Time of Evaluation Date of Evaluation: 09/26/18 Time of Evaluation: 12:30 - Subjective Subjective: Pt. seen and examined, is confused , disoriented. Noted to have stage 3 sacral wound, stage 3, with yellow colored discharge noted. Objective - Vital Signs/Intake and Output Vital Signs (last 24 hours): Temp Pulse Resp BP Pulse Ox 97 F L 77 20 158/81 H 99 09/26/18 08:39 09/26/18 08:39 09/26/18 08:39 09/26/18 08:39 09/26/18 08:39 Intake and Output: 09/26/18 09/26/18 06:59 18:59 Intake Total 720 Balance 720 - Medications Medications: Current Medications Sodium Chloride (Sodium Chloride 0.9%) 1,000 mls @ 60 mls/hr IV .[id number] [facility] Last Admin: 09/26/18 12:34 Dose: 60 mls/hr Potassium Chloride (Potassium Chloride 20 Meq/100 Ml) 20 meq in 100 mls @ 50 mls/hr IVPB Q2H [facility] Stop: 09/26/18 16:44 Last Admin: 09/26/18 14:03 Dose: 50 mls/hr Thiamine HCl (Vitamin B1 Tab) 100 mg PO DAILY [facility] Last Admin: 09/26/18 09:54 Dose: 100 mg - Labs Labs: 09/26/18 06:00 09/26/18 06:00 PT 14.4 SECONDS (9.4-12.5) H 09/24/18 02:45 INR 1.30 09/24/18 02:45 APTT 25.9 Seconds (26.9-38.3) L 09/24/18 02:45 - Constitutional Appears: Well - Head Exam Head Exam: NORMOCEPHALIC - Eye Exam Eye Exam: Normal appearance - Neck Exam Neck Exam: Full ROM - Respiratory Exam Respiratory Exam: Clear to Ausculation Bilateral, NORMAL BREATHING PATTERN - Cardiovascular Exam Cardiovascular Exam: REGULAR RHYTHM, +S1, +S2 - GI/Abdominal Exam GI & Abdominal Exam: Soft, Normal Bowel Sounds - Rectal Exam Rectal Exam: Deferred - Exam External exam: absent: Ecchymosis, Erythema, Lacerations, Lesions, NORMAL EXTERNAL EXAM, Swelling Speculum exam: absent: Cervical Discharge, Erythema, Foreign Body, Laceration, NORMAL SPECULUM EXAM, Tissue, Vaginal Bleeding, Vaginal Discharge Bimanual exam: absent: Adenexal Mass, Adnexal, Cervical Motion Tendernes, NORMAL BIMANUAL EXAM, Uterine Enlargement, Uterine Tenderness - Extremities Exam Extremities Exam: absent: Calf Tenderness, Full ROM, Joint Swelling, Normal Capillary Refill, Normal Inspection, Pedal Edema, Tenderness - Neurological Exam Neurological Exam: Alert, Awake Assessment and Plan - Assessment and Plan (Free Text) Assessment: ITS Impressions Head CT 09/24/18 02:23 IMPRESSION: No acute intracranial abnormality. Mild age-related global parenchymal loss with parietal lobe predominance. A preliminary report was provided by [employer] services. Chest X-Ray 09/24/18 02:24 IMPRESSION: No active disease. Assessment: 73 year old female with PMH of dementia, urinary incontinence, history of UTI, obesity with BMI 31 was brought in to [facility] by family because of generalized weakness and increasing confusion. The patient was apparently noted to be unsteady on her feet, admitted for further eval and treatment. Plan: 1. Altered Mental Status Neuro rec. Physical therapy, for severe deconditioned state. urine cx and blood cx result pending, Antibx per I.D. 2. Deconditioned PT recs KENNY. 3. Dehydration cont. IVf, monitor bun/creatinine. 4. Stage 3Sacral Decub Surgery consulted Will continue to monitor clinical status. DW with consultants and PMD. CM/SW planning for KENNY/LTC?
--- NOTE | 2018-09-26 16:54 | CP.PCM.CON ---
History of Present Illness - History of Present Illness History of Present Illness: Surgery Consult Note for Dr. Tang Patient is a 73 yo female w/PMH of Alzheimer's disease, urinary incontinence, history of UTI admitted for bed sores and worsening ADLs as noticed by primary scheduling assistant, son. Patient's cousin was at bedside and offered collateral as patient has an advanced form of dementia at baseline. According to cousin, son brought in patient on 09-24 as patient was trying to clean mom because she was increased number of accidents but patient was fighting her son during cleaning process. While cleaning, patient's son noticed the extensive bedsores and decided to bring in mom for treatment. Limited ROS 2/2 dementia. All other information was attained through chart review. PMHx: unobtainable PSurgHx: unobtainable Meds: pls see chart ALL: unobtainable SocHx: unobtainable FamHx: unobtainable Review of Systems - Review of Systems Systems not reviewed;Unavailable: Dementia Past Patient History - Past Social History Smoking Status: Unknown If Ever Smoked - CARDIAC Hx Cardiac Disorders: No - PULMONARY Hx Respiratory Disorders: No - NEUROLOGICAL Hx Neurological Disorder: Yes Hx Dementia: Yes - HEENT Hx HEENT Problems: No - RENAL Hx Chronic Kidney Disease: No - ENDOCRINE/METABOLIC Hx Endocrine Disorders: No - HEMATOLOGICAL/ONCOLOGICAL Hx Blood Disorders: No - INTEGUMENTARY Hx Dermatological Problems: No - MUSCULOSKELETAL/RHEUMATOLOGICAL Hx Musculoskeletal Disorders: Yes Hx Unsteady Gait: Yes - GASTROINTESTINAL Hx Gastrointestinal Disorders: No - GENITOURINARY/GYNECOLOGICAL Hx Genitourinary Disorders: Yes Hx Incontinence: Yes Hx Urinary Tract Infection: Yes - PSYCHIATRIC Hx Psychophysiologic Disorder: Yes Hx Substance Use: No Other/Comment: BEHAVIORAL DISTURBANCE - SURGICAL HISTORY Hx Surgeries: No Meds Allergies/Adverse Reactions: Allergies Allergy/AdvReac Type Severity Reaction Status Date / Time Penicillins Allergy SHORTNESS Verified 09/24/18 02:09 OF BREATH - Medications Medications: Current Medications Sodium Chloride (Sodium Chloride 0.9%) 1,000 mls @ 60 mls/hr IV .[id number] [facility] Last Admin: 09/26/18 12:34 Dose: 60 mls/hr Thiamine HCl (Vitamin B1 Tab) 100 mg PO DAILY [facility] Last Admin: 09/26/18 09:54 Dose: 100 mg Physical Exam - Constitutional Appears: Non-toxic, No Acute Distress - Head Exam Head Exam: NORMAL INSPECTION, NORMOCEPHALIC - Eye Exam Eye Exam: EOMI. absent: Nystagmus - Respiratory Exam Respiratory Exam: NORMAL BREATHING PATTERN. absent: Respiratory Distress - Cardiovascular Exam Cardiovascular Exam: REGULAR RHYTHM. absent: JVD - GI/Abdominal Exam GI & Abdominal Exam: Soft. absent: Tenderness - Extremities Exam Additional comments: two wounds noted on right lower extremity 1st wound: on right buttock extending into right thigh, 8cm * 11cm stage 3 ulcer with granulation tissue, foul odor 2nd wound: on posterior thigh about 6cm x 3 cm stage 2 ulcer with no granulation tissue oozing or pus appreciated, foul odor - Neurological Exam Neurological exam: Alert - Skin Skin Exam: Intact, Normal Color Results - Vital Signs Recent Vital Signs: Last Vital Signs Temp 97 F L 09/26/18 08:39 Pulse 77 09/26/18 08:39 Resp 20 09/26/18 08:39 BP 158/81 H 09/26/18 08:39 Pulse Ox 99 09/26/18 08:39 - Labs Result Diagrams: 09/27/18 06:30 09/27/18 06:30 Labs: Laboratory Results - last 24 hr 09/26/18 09/26/18 06:00 06:00 WBC 11.5 H RBC 4.04 Hgb 11.0 L Hct 36.0 MCV 89.1 MCH 27.2 MCHC 30.6 L RDW 12.8 Plt Count 371 MPV 9.6 Sodium 138 Potassium 3.2 L Chloride 102 Carbon Dioxide 29 Anion Gap 10 BUN 8 Creatinine 0.4 L Est GFR ( Amer) > 60 Est GFR (Non-Af Amer) > 60 Random Glucose 89 Calcium 9.4 Total Bilirubin 0.4 AST 24 ALT 32 Alkaline Phosphatase 63 Total Protein 6.2 Albumin 3.1 Globulin 3.2 Albumin/Globulin Ratio 1.0 L Assessment & Plan - Assessment and Plan (Free Text) Assessment: 73 yo with PMH of dementia, recurrent UTIs admitted for bed sores. Surgery consulted sacral wounds Plan: ID, wound care nursing following, appreciate input Sacral wound treatment with wound vacuum with [facility] team using veraflo Further recs as per Dr. Tang PGY-1 Ara Dean
[2018-09-27] MEDS: Sodium Chloride 0.9% 1,000 ML IV SCH (04:29)
[2018-09-27 07:01] LABS: HEMOGLOBIN 10.7 g/dL (12.0-16.0); MEAN CELL VOLUME 89.3 fl (80.0-105.0); MEAN CORPUSCULAR HEMOGLOBIN 27.4 pg (25.0-35.0); MEAN CORPUSCULAR HGB CONC 30.7 g/dl (31.0-37.0); MEAN PLATELET VOLUME 9.5 fl (7.0-11.0); RBC 3.91 10^6/uL (3.5-6.1); RED CELL DISTRIBUTION WIDTH 13.1 % (11.5-14.5); WHITE BLOOD COUNT 11.3 10^3/uL (4.5-11.0)
[2018-09-27 07:51] LABS: ALBUMIN 2.9 g/dL (3.0-4.8); ALT/SGPT 25 U/L (7-56); AST/SGOT 22 U/L (14-36); BLOOD UREA NITROGEN 9 mg/dL (7-21); CALCIUM 9.3 mg/dL (8.4-10.5); GFR NON-AFRICAN AMERICAN > 60
[2018-09-27] MEDS: Dakin's Topical 0.5%-Full Strength (480 ml) TOP SCH (09:12)
--- NOTE | 2018-09-27 09:21 | CP.PCM.PN ---
Subjective - Date & Time of Evaluation Date of Evaluation: 09/27/18 Time of Evaluation: 09:17 - Subjective Subjective: Surgery Progress Note as per Dr. Tang S/E at bedside. Limited ROS 2/2 patient dementia. Objective - Vital Signs/Intake and Output Vital Signs (last 24 hours): Temp Pulse Resp BP Pulse Ox 98.7 F 85 20 154/77 H 100 09/27/18 08:33 09/27/18 08:33 09/27/18 08:33 09/27/18 08:33 09/27/18 08:33 Intake and Output: 09/27/18 09/27/18 06:59 18:59 Intake Total 2460 Balance 2460 - Medications Medications: Current Medications Sodium Chloride (Sodium Chloride 0.9%) 1,000 mls @ 60 mls/hr IV .[id number] [facility] Last Admin: 09/27/18 04:29 Dose: 60 mls/hr Sodium Hypochlorite (Dakins Solution 0.5%) 0 ml TOP DAILY [facility] Last Admin: 09/27/18 09:12 Dose: 1 applic Thiamine HCl (Vitamin B1 Tab) 100 mg PO DAILY [facility] Last Admin: 09/27/18 09:13 Dose: 100 mg - Labs Labs: 09/27/18 06:30 09/27/18 06:30 PT 14.4 SECONDS (9.4-12.5) H 09/24/18 02:45 INR 1.30 09/24/18 02:45 APTT 25.9 Seconds (26.9-38.3) L 09/24/18 02:45 - Constitutional Appears: Non-toxic, No Acute Distress - Additional Findings Additional findings: - Constitutional Appears: Non-toxic, No Acute Distress - Head Exam Head Exam: NORMAL INSPECTION, NORMOCEPHALIC - Eye Exam Eye Exam: EOMI. absent: Nystagmus - Respiratory Exam Respiratory Exam: NORMAL BREATHING PATTERN. absent: Respiratory Distress - Cardiovascular Exam Cardiovascular Exam: REGULAR RHYTHM. absent: JVD - GI/Abdominal Exam GI & Abdominal Exam: Soft. absent: Tenderness - Extremities Exam Additional comments: two wounds noted on right lower extremity 1st wound: on right buttock extending into right thigh, 8cm * 11cm stage 3 ulcer with granulation tissue, foul odor 2nd wound: on posterior thigh about 6cm x 3 cm stage 2 ulcer with no granulation tissue oozing or pus appreciated, foul odor - Neurological Exam Neurological exam: Awake - Skin Skin Exam: Intact, Normal Color Assessment and Plan - Assessment and Plan (Free Text) Assessment: 73 yo with PMH of dementia, recurrent UTIs admitted for bed sores. Surgery consulted sacral wounds Plan: Will do veraflow for both ulcers on right lower extremity with [facility] team and wound care nurse [place] Keep veraflow on for three days and reassess wound daily Further recs as per Dr. Tang PGY-1 Ara Dean
--- NOTE | 2018-09-27 16:31 | CP.PCM.PCO ---
Physician Communication Note - Physician Communication Note Physician Communication Note: I&D sacral wound rec by surgery,pending consent from son,sacral wound cx +
--- NOTE | 2018-09-28 00:14 | PN ---
DATE: 09/27/2018 SUBJECTIVE: The patient is in bed in no acute distress. PHYSICAL EXAMINATION VITAL SIGNS: Temperature is 98, blood pressure is 160/70, respiratory rate of 20. HEENT: Unremarkable. NECK: Supple. LUNGS: Decreased breath sounds. HEART: Normal S1 and S2. ABDOMEN: Soft. LABORATORY DATA: Reveals a white count of 11,000, hemoglobin is noted. Urinalysis is noted. Chemistries are noted. MEDICATIONS: Review of orders reveals the patient is off of antibiotics. ASSESSMENT AND PLAN: A 73-year-old female who was seen earlier today with systemic inflammatory response syndrome, no evidence of urinary tract infection, stage III sacral ulcer, necrotic for debridement. Currently off of antibiotics. Continue local wound care. Microbiology is pending. We will follow with you. Gopi Garcia MD
--- NOTE | 2018-09-28 03:32 | DS ---
HISTORY OF PRESENT ILLNESS: She is totally confused in bed. She has a sacral ulcer, stage III. Waiting for Surgery to give me a treatment plan. Until then I put her on Dakin's solution. I also called the wound care nurse to take a look at her. Other than that she is pleasantly confused. saw her, asked for physical therapy. PHYSICAL EXAMINATION: VITAL SIGNS: A 98.7 temperature, 85 pulse, 154/77 blood pressure, 20 respiratory rate, 100% O2 sat on room air. HEAD: Atraumatic, normocephalic. HEART: Regular rate. LUNGS: With decreased breath sounds but clear. ABDOMEN: Soft. EXTREMITIES: No edema. Stage III right buttocks ulcer and there is a smaller ulcer. MEDICATIONS: Presently she is on Dakin's solution, IV fluids, and vitamin B1. LABORATORY DATA: She has a white count that is 11.3, hemoglobin 10.7, hematocrit 34.9, platelets of 1399. She has a 137 sodium, potassium 3.7, BUN is 9, creatinine 0.5, EFR is greater than 60, sugar is 89, calcium is 9.3, total bili is 0.3, AST is 22, ALT is 25, alk phos 63, total protein 65.9. Urine was small and many bacteria. She was on antibiotics by Infectious Disease, he stopped them all because the wound cultures are pending and no growth in the blood and no growth in the urine. ASSESSMENT AND PLAN: She needs to have some sort of treatment from Surgery, waiting for them to come to the table. I am also trying get a subacute rehab, [facility]. She is to see Hoping for some direction from case management and for wound care and hopefully will be discharged later today. She needs physical therapy. Josh Reveles DO MTDRohith
[2018-09-28 08:37] LABS: HEMOGLOBIN 10.7 g/dL (12.0-16.0); MEAN CELL VOLUME 89.6 fl (80.0-105.0); MEAN CORPUSCULAR HEMOGLOBIN 27.2 pg (25.0-35.0); MEAN CORPUSCULAR HGB CONC 30.4 g/dl (31.0-37.0); MEAN PLATELET VOLUME 9.4 fl (7.0-11.0); RBC 3.93 10^6/uL (3.5-6.1); RED CELL DISTRIBUTION WIDTH 12.9 % (11.5-14.5); WHITE BLOOD COUNT 10.8 10^3/uL (4.5-11.0)
[2018-09-28 08:43] LABS: ALBUMIN 3.1 g/dL (3.0-4.8); ALT/SGPT 27 U/L (7-56); AST/SGOT 27 U/L (14-36); BLOOD UREA NITROGEN 8 mg/dL (7-21); CALCIUM 9.6 mg/dL (8.4-10.5); GFR NON-AFRICAN AMERICAN > 60
--- NOTE | 2018-09-28 10:09 | CP.PCM.PN ---
Subjective - Date & Time of Evaluation Date of Evaluation: 09/28/18 Time of Evaluation: 07:15 - Subjective Subjective: General Surgery Progress note for Dr. Tang Patient S/E at bedside. no complaints at this time. Team was able to speak with son to obtain consent for debridement of ulcer for Saturday 09/30. ROS is limited due to patient dementia and difficulty answering questions. Objective - Vital Signs/Intake and Output Vital Signs (last 24 hours): Temp Pulse Resp BP Pulse Ox 98.3 F 93 H 20 147/65 99 09/28/18 06:00 09/28/18 06:00 09/28/18 06:00 09/28/18 06:00 09/28/18 06:00 Intake and Output: 09/28/18 09/28/18 06:59 18:59 Intake Total 1000 Balance 1000 - Medications Medications: Current Medications Sodium Chloride (Sodium Chloride 0.9%) 1,000 mls @ 60 mls/hr IV .[id number] [facility] Last Admin: 09/27/18 04:29 Dose: 60 mls/hr Sodium Hypochlorite (Dakins Solution 0.5%) 0 ml TOP DAILY [facility] Last Admin: 09/27/18 09:12 Dose: 1 applic Thiamine HCl (Vitamin B1 Tab) 100 mg PO DAILY [facility] Last Admin: 09/27/18 09:13 Dose: 100 mg - Labs Labs: 09/28/18 08:19 09/28/18 08:19 PT 14.4 SECONDS (9.4-12.5) H 09/24/18 02:45 INR 1.30 09/24/18 02:45 APTT 25.9 Seconds (26.9-38.3) L 09/24/18 02:45 - Constitutional Appears: Well, Non-toxic, No Acute Distress - Head Exam Head Exam: ATRAUMATIC - Eye Exam Eye Exam: EOMI - ENT Exam ENT Exam: Mucous Membranes Moist - Respiratory Exam Respiratory Exam: NORMAL BREATHING PATTERN - Cardiovascular Exam Cardiovascular Exam: REGULAR RHYTHM - GI/Abdominal Exam GI & Abdominal Exam: Soft. absent: Tenderness - Back Exam Additional comments: two wounds noted on right lower extremity 1st wound: on right buttock extending into right thigh, 8cm * 11cm stage 3 ulcer with granulation tissue, foul odor 2nd wound: on posterior thigh about 6cm x 3 cm stage 2 ulcer with no granulation tissue oozing or pus appreciated, foul odor - Neurological Exam Neurological Exam: Alert, Awake. absent: Oriented x3 - Psychiatric Exam Psychiatric exam: Normal Affect, Normal Mood - Skin Skin Exam: Warm Additional comments: two wounds noted on right lower extremity 1st wound: on right buttock extending into right thigh, 8cm * 11cm stage 3 ulcer with granulation tissue, foul odor 2nd wound: on posterior thigh about 6cm x 3 cm stage 2 ulcer with no granulation tissue oozing or pus appreciated, foul odor Assessment and Plan - Assessment and Plan (Free Text) Assessment: 73 yo with PMH of dementia, recurrent UTIs admitted for bed sores. Surgery consulted sacral wounds Plan: -consent for debridement of wounds obtained from son - plan for debridement of wounds on Sunday in OR - wounds not currently amenable to wound vac theraflo treatment - discussed with Dr. Clyde Sanchez, PGY 1
[2018-09-28] MEDS: Dakin's Topical 0.5%-Full Strength (480 ml) TOP SCH (10:30)
--- NOTE | 2018-09-28 14:13 | PN ---
DATE: 09/28/2018 SUBJECTIVE: She is presently confused in bed surgery due to debridement on her sacral ulcer which is the recommendation. She is on IV fluid, Dakin's solution and thiamine. She is presently confused the recommendation from physical therapy which she could use. She is eating okay. No acute pain. PHYSICAL EXAMINATION: VITAL SIGNS: A 98.3 temp, 93 pulse, 147/65 blood pressure, 20 respiratory rate and 99% O2 sat on room air. HEENT: Head is atraumatic and normocephalic. HEART: Regular rate. LUNGS: Decreased breath sounds. ABDOMEN: Soft. EXTREMITIES: No edema, large sacral ulcer, needing debridement. LABORATORY DATA: She has a 10.8 white count, 10.7 hemoglobin, 35.2 hematocrit and with 433 platelets. INR is 1.3. She has a 139 sodium, potassium 3.6, BUN is 8, creatinine 0.5, GFR is greater than 60, sugar is 79, calcium is 9.6, total bili is 0.3, AST is 27, ALT is 47, alk phos 55 and total protein 6.2. She has urinary tract infection. She is being seen by Infectious Disease. We stop the antibiotics. I was hoping to discharge the other day, but surgery said that has to do the debridement on the necrotic tissue for stage III sacral ulcer and they have not done it yet waiting for that to happen so would get her to subacute rehab. She was seen today by Rosendo Del Valle with no identifiable milton a different team without any notes or any direction or anything that she so when I get surgery to possibly debrided then will get planning for subacute rehab, I hope that happens today. Josh Reveles DO BOLIVAR
--- NOTE | 2018-09-28 20:56 | PN ---
DATE: 09/28/2018 SUBJECTIVE: The patient is in bed, in no acute distress, nontoxic. PHYSICAL EXAMINATION: VITAL SIGNS: Temperature is 98, blood pressure is 140/60, respiratory rate of 20, heart rate of 93. HEENT: Unremarkable. NECK: Supple. LUNGS: Decreased breath sounds. HEART: Normal S1, S2. ABDOMEN: Soft. LABORATORY DATA: White count of 10,000, hemoglobin of 10, BUN of 8, creatinine of 0.5. Urinalysis is noted. Microbiology is noted. The patient's decubitus ulcer is also examined. ASSESSMENT AND PLAN: This is a 73-year-old female, was seen earlier with systemic inflammatory response syndrome. No evidence of urinary tract infection. The patient does have stage III sacral ulcer necrotic area, however. Local wound care, no antibiotics necessary. The organisms growing in the buttocks in the wound culture have colonized as Corynebacterium and at this time local wound care and no systemic antibiotics needed. Gopi Garcia MD
[2018-09-29] MEDS: Sodium Chloride 0.9% 1,000 ML IV SCH ×2 (00:59→18:52)
[2018-09-29 07:34] LABS: ALBUMIN 2.9 g/dL (3.0-4.8); ALT/SGPT 30 U/L (7-56); AST/SGOT 22 U/L (14-36); BLOOD UREA NITROGEN 10 mg/dL (7-21); CALCIUM 9.5 mg/dL (8.4-10.5); GFR NON-AFRICAN AMERICAN > 60
[2018-09-29 07:47] LABS: HEMOGLOBIN 10.1 g/dL (12.0-16.0); MEAN CORPUSCULAR HEMOGLOBIN 27.1 pg (25.0-35.0); MEAN CORPUSCULAR HGB CONC 30.4 g/dl (31.0-37.0); RBC 3.73 10^6/uL (3.5-6.1); RED CELL DISTRIBUTION WIDTH 13.1 % (11.5-14.5); WHITE BLOOD COUNT 8.4 10^3/uL (4.5-11.0)
--- NOTE | 2018-09-29 08:09 | CP.PCM.PN ---
Subjective - Date & Time of Evaluation Date of Evaluation: 09/29/18 Time of Evaluation: 08:08 - Subjective Subjective: Surgery Note for Dr. Tang 73F seen and evaluated at bedside this morning. No acute events overnight. ROS limited secondary to patients mental status. Objective - Vital Signs/Intake and Output Vital Signs (last 24 hours): Temp Pulse Resp BP Pulse Ox 98.4 F 83 20 130/64 98 09/29/18 06:00 09/29/18 06:00 09/29/18 06:00 09/29/18 06:00 09/29/18 06:00 Intake and Output: 09/29/18 09/29/18 06:59 18:59 Intake Total 0 Output Total 0 Balance 0 - Medications Medications: Current Medications Sodium Chloride (Sodium Chloride 0.9%) 1,000 mls @ 60 mls/hr IV .[id number] [facility] Last Admin: 09/29/18 00:59 Dose: 60 mls/hr Sodium Hypochlorite (Dakins Solution 0.5%) 0 ml TOP DAILY [facility] Last Admin: 09/28/18 10:30 Dose: 1 applic Thiamine HCl (Vitamin B1 Tab) 100 mg PO DAILY [facility] Last Admin: 09/28/18 10:32 Dose: Not Given - Labs Labs: 09/29/18 07:00 09/29/18 07:00 PT 14.4 SECONDS (9.4-12.5) H 09/24/18 02:45 INR 1.30 09/24/18 02:45 APTT 25.9 Seconds (26.9-38.3) L 09/24/18 02:45 - Constitutional Appears: Non-toxic, No Acute Distress - Head Exam Head Exam: ATRAUMATIC, NORMAL INSPECTION, NORMOCEPHALIC - Eye Exam Eye Exam: EOMI - ENT Exam ENT Exam: Mucous Membranes Dry - Respiratory Exam Respiratory Exam: Clear to Ausculation Bilateral, NORMAL BREATHING PATTERN. absent: Respiratory Distress - Cardiovascular Exam Cardiovascular Exam: REGULAR RHYTHM, +S1, +S2. absent: Murmur - GI/Abdominal Exam GI & Abdominal Exam: Soft, Normal Bowel Sounds. absent: Tenderness - Neurological Exam Neurological Exam: Alert, Awake, Oriented x3 - Psychiatric Exam Psychiatric exam: Normal Affect, Normal Mood - Skin Additional comments: two wounds noted on right lower extremity 1st wound: on right buttock extending into right thigh, 8cm * 11cm stage 3 ulcer with granulation tissue, foul odor 2nd wound: on posterior thigh about 6cm x 3 cm stage 2 ulcer with no granulation tissue oozing or pus appreciated, foul odor Assessment and Plan - Assessment and Plan (Free Text) Assessment: 73F, PMH of dementia, recurrent UTIs admitted for chronic sacral wounds Plan: Local wound care Plan for debridement of wounds on Sunday in OR D/w Dr. Clyde Mendes PGY1
[2018-09-29] MEDS: Dakin's Topical 0.5%-Full Strength (480 ml) TOP SCH (09:28)
--- NOTE | 2018-09-29 14:04 | PN ---
DATE: 09/29/2018 SUBJECTIVE: She is resting comfortably in bed. She is going eventually to go to [facility] for rehab. She has two wounds on the right lower extremity. There are some necrotic areas with foul odor and they need to be debrided by Surgery. Now, I find out, after three days, it will be done on Sunday and we will bring her after the debridement. We will get her to [facility], [facility]. There is corynebacterium species, gram-negative rods, gram-positive cocci in the wounds. No antibiotics at this time as per Infectious Disease, hopefully she will not need that. She is alert in bed, comfortable, smiling. PHYSICAL EXAMINATION: VITAL SIGNS: She is 98.4 temp, 83 pulse, 130/64 blood pressure, 20 respiratory rate and 98% O2 sat on room air. HEENT: Head is atraumatic and normocephalic. HEART: Regular rate. LUNGS: Decreased breath sounds,but clear. ABDOMEN: Soft. EXTREMITIES: No edema. She has two wounds with necrotic tissue. LABORATORY DATA: She has a white count of 8.4, hemoglobin 10.1, hematocrit 32.2 and platelets of 426. She has a 140 sodium, potassium 3.6, BUN is 7, creatinine 0.5, GFR is greater than 60, sugar is 101, calcium is 5.1, total bili is 0.2, AST is 22, ALT is 30, alk phos 60 and total protein 6. IMPRESSION: So, tomorrow, she will get the debridement and then hopefully after that [facility] can get her to [facility]. Niru Patel with change in mentation, with ulcers, partially urinary tract infections, systemic inflammatory response syndrome. Josh Reveles DO
--- NOTE | 2018-09-29 14:43 | PN ---
DATE: 09/29/2018 SUBJECTIVE: The patient is in bed in no acute distress, nontoxic. PHYSICAL EXAMINATION VITAL SIGNS: On exam, temperature is 98, blood pressure is 130/60 and respiratory rate of 18. HEENT: Unremarkable. NECK: Supple. LUNGS: Have decreased breath sounds. HEART: Normal S1 and S2. ABDOMEN: Soft and nontender. LABORATORY EXAMINATION: Reveals a white count of 8.4, hemoglobin of 10 and platelets of 426. Chemistries reveals a BUN of 10 and creatinine of 0.5. Urinalysis is noted. Microbiology reveals Corynebacterium species is noted, Proteus and staph and another Corynebacterium species is noted. Staph is oxacillin sensitive. ASSESSMENT AND PLAN: This is a 73-year-old female seen in [facility], bed 1 with systemic inflammatory response syndrome, local wound care alone, no intravenous antibiotics, no systemic antibiotics necessary. examine this patient and the wound needs local care and THE PATIENT IS ALLERGIC TO PENICILLIN and Dr. Tang's note is reviewed. Continue local care. He is planned for further debridement on Sunday in the operating room. Gopi Garcia MD
[2018-09-30 07:20] LABS: BASO # 0.01 K/mm3 (0.0-2.0); BASO % 0.1 % (0.0-3.0); EOS # 0.2 (0.0-0.7); EOS % 2.8 % (1.5-5.0); HEMOGLOBIN 10.3 g/dL (12.0-16.0); LYMPH % 27.4 % (22.0-35.0); MEAN CELL VOLUME 88.8 fl (80.0-105.0); MEAN CORPUSCULAR HEMOGLOBIN 27.4 pg (25.0-35.0); MEAN CORPUSCULAR HGB CONC 30.8 g/dl (31.0-37.0); MEAN PLATELET VOLUME 8.8 fl (7.0-11.0); MONO # 0.6 (0.1-0.6); MONO % 8.1 % (1.0-6.0); RBC 3.76 10^6/uL (3.5-6.1); RED CELL DISTRIBUTION WIDTH 13.1 % (11.5-14.5); WHITE BLOOD COUNT 7.4 10^3/uL (4.5-11.0)
[2018-09-30 08:04] LABS: ALB/GLOB RATIO 0.9 (1.1-1.8); ALBUMIN 2.8 g/dL (3.0-4.8); ALT/SGPT 21 U/L (7-56); AST/SGOT 20 U/L (14-36); BLOOD UREA NITROGEN 9 mg/dL (7-21); CALCIUM 9.4 mg/dL (8.4-10.5); GFR NON-AFRICAN AMERICAN > 60
[2018-09-30] MEDS ORDERED: Oxychlorosene Topical 2 gm Packet TOP ONE (11:35)
[2018-09-30] MEDS ORDERED: Bupivacaine 0.5% 50 ML IJ ONE (11:35)
--- NOTE | 2018-09-30 11:38 | DS ---
HOSPITAL COURSE: She is pleasantly confused in the bed. She is hopefully going for debridement with surgery today, then my plan is to get her to subacute rehab today at [facility]. I discussed with the child protective services social worker this morning, so she is going to start looking at places that she can go to. She is currently on IV fluids solution, had potassium one time today and thiamine. PHYSICAL EXAMINATION: VITAL SIGNS: Temperature 98.1, pulse 96, blood pressure 163/82, respiratory rate 20, O2 sat 98% on room air. HEENT: Head is atraumatic and normocephalic. HEART: Regular rate. LUNGS: Decreased breath sounds. ABDOMEN: Soft and nontender. Positive bowel sounds. EXTREMITIES: No edema. NEUROLOGIC: She is presently confused. SKIN: She has two sacral ulcers and need to be debrided. Hopefully, we can get her to [facility] for continued treatment. LABORATORY DATA: White count 7.4, hemoglobin 10.3, hematocrit 32.4 and platelets 394 . Sodium 140, potassium 3.5 and I gave her K-rider, BUN 9, creatinine 0.5, GFR is greater than 60, sugars is 93, calcium is 9.4, phosphorus 3, magnesium 1.8, total bili is 0.2, AST is 20, ALT is 21, alk phos 57, and total protein 5.9. ASSESSMENT AND PLAN: She has little bit of urinary tract infection. Change in mentation, systemic inflammatory response syndrome, 2 right sacral ulcers. Hopefully, move her to [facility] today. Josh Reveles DO MTDRohith
--- NOTE | 2018-09-30 12:33 | PN ---
DATE: 09/30/2018 SUBJECTIVE: The patient is in bed in no acute distress, nontoxic. PHYSICAL EXAMINATION: VITAL SIGNS: Temperature is 98, blood pressure is 160/80, respiratory rate of 20. HEENT: Unremarkable. NECK: Supple. LUNGS: Have decreased breath sounds. HEART: Normal S1, S2. ABDOMEN: Soft. LABORATORY EXAMINATION: Reveals a white count of 7.4, hemoglobin of 10, platelets of 394. Chemistries are normal. Urinalysis is noted and microbiology is reviewed. ASSESSMENT AND PLAN: This is a 73-year-old female with systemic inflammatory response syndrome, local wound care alone. No intravenous antibiotics. The patient is for possible debridement today. Currently off of antibiotics. Continue local wound care. No antibiotics necessary at this time. Gopi Garcia MD
--- NOTE | 2018-09-30 12:45 | CP.PCM.PCO ---
Physician Communication Note - Physician Communication Note Physician Communication Note: Pt. medically cleared for dc to [facility], after I/D wound, d/w SW,awaits [facility] bed
[2018-09-30] MEDS ORDERED: Morphine 2 mg/ml ISec IVP PRN (13:57)
[2018-09-30] MEDS ORDERED: Lactated Ringer's 1,000 ML IV SCH (14:00)
[2018-09-30] MEDS ORDERED: Propofol 10 mg/ml Inj (20 ML) ONE (14:13)
--- NOTE | 2018-09-30 15:09 | PCM.SURG1 ---
Surgeon's Initial Post Op Note - Surgeon's Notes Surgeon: Dr. Tang Wedding Planner: Dr. Del Valle PGY 1, Eugene Kaba PGY 3 Type of Anesthesia: MAC Anesthesia Administered By: Estephania Blue Pre-Operative Diagnosis: sacral decubitus ulcer right Operative Findings: right sacral decubitus ulcer stage 3 Post-Operative Diagnosis: right sacral decubitus ulcer stage 3 Operation Performed: Sharp debridement of decubitus ulcer Specimen/Specimens Removed: none Estimated Blood Loss: EBL {In ML}: 5 Blood Products Given: N/A Drains Used: No Drains Post-Op Condition: Fair Date of Surgery/Procedure: 09/30/18 Time of Surgery/Procedure: 14:30
[2018-09-30] MEDS ORDERED: Morphine 4 mg/ml ISec ONE (15:18)
[2018-09-30] MEDS ORDERED: DiphenhydrAMINE 50 mg/ml Inj IVP ONE (15:20)
[2018-09-30] MEDS ORDERED: DiphenhydrAMINE 50 mg/ml Inj ONE (15:23)
[2018-09-30 15:24] VITALS: RESP 16; TEMP 97.7; O2SAT 98
[2018-09-30 15:47] VITALS: BP 141/89; PULSE 79
[2018-09-30] MEDS ORDERED: DiphenhydrAMINE 50 mg/ml Inj IVP STA (16:05)
--- NOTE | 2018-10-04 06:57 | OP ---
PROCEDURE DATE: 09/30/2018 This debridement cannot be done on the floor because of her noncompliance and histrionics. The patient reported to the operating room, placed on her side. Endotracheal anesthesia was begun. Time-out was then initiated. The area in the right hip was prepped with Betadine and then draped. Time-out was achieved without incident. There was a necrotic area that was grabbed and taken with a scissor, circumferentially removing the tissue. Having done this, the area was cleaned with a dressing tape circumferentially. There was no real undermining except in the anterior and superior portions, and the area was cleaned to good bleeding and viable tissue. The wound was packed. The patient was taken to the recovery room in good condition. Yonathan Tang MD
== END 2018-09-30 20:42 | DRG 580 ==
LOC: ED 02:01 → ERH 05:58 → 3RSO 06:19 → ERH 06:20 → 3RSO 07:08 → OBSVTOIN 09-25 09:13
PROVIDERS: ADMIT Family Medicine; ATTEND Family Medicine
PROC: 0JDC0ZZ Extraction of Pelvic Region Subcutaneous Tissue and Fascia, Open Approach (ICD-10-PCS; principal; 2018-09-30 12:30)
DX: L89.153 Pressure ulcer of sacral region, stage 3 (principal); N39.0 Urinary tract infection, site not specified; L89.313 Pressure ulcer of right buttock, stage 3; E86.0 Dehydration; R26.2 Difficulty in walking, not elsewhere classified; G30.9 Alzheimer's disease, unspecified; F02.80 Dementia in other diseases classified elsewhere, unspecified severity, without behavioral disturbance, psychotic disturbance, mood disturbance, and anxiety; R32 Unspecified urinary incontinence; E66.9 Obesity, unspecified; Z68.31 Body mass index [BMI] 31.0-31.9, adult; Z87.440 Personal history of urinary (tract) infections; Z88.0 Allergy status to penicillin